=== PATIENT | male | born 1950 | race Two or more races ===

== ENCOUNTER 2019-06-16 17:06 | Inpatient (IN) | payer SELFPAY ==
[~2019-06-16] VITALS: Ht 175.3 cm; Wt 61.5 kg
--- NOTE | 2019-06-16 17:53 | NUR ---
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
--- NOTE | 2019-06-16 18:18 | NUR ---
THIS IS A 69 YO MALE COMING IN FOR CONSTANT COUGH WITH SHORTNESS OF BREATH, STATES "I JUST CAN'T BREATHE ANYMORE. I HAD THE FLU AND A COLD A FEW WEEKS AGO AND IT'S JUST GETTING WORSE". PATIENT SPO2 ON RA 87%, PLACED ON 3L NC, UP TO 99%. PATIENT DENIES ANY MEDICAL OR SURGICAL HX. PATIENT ON ADVERTISER, SINUS TACHYCARDIA AT 110. IV INSERTED. CALL LIGHT IN REACH. NEEDS ADDRESSED AT THIS TIME.
[2019-06-16] MEDS ORDERED: ALBUTEROL/IPRATROPIUM 2.5MG/0.5MG, 3 ML ONE (18:29)
[2019-06-16] MEDS ORDERED: SODIUM CHLORIDE FLUSH 10ML SYR IVF ONE (18:30)
[2019-06-16] MEDS ORDERED: ALBUTEROL/IPRATROPIUM 2.5MG/0.5MG, 3 ML NPPB ONE (18:30)
[2019-06-16 18:40] LABS: BASOPHILS # (AUTO) 0.01 x10^3/uL (0-0.1); BASOPHILS % (AUTO) 0 % (0-1); EOSINOPHILS % (AUTO) 0 % (1-7); LYMPHOCYTES # (AUTO) 0.94 x10^3/uL (1-3.4); LYMPHOCYTES % (AUTO) 16 % (22-44); MD NO; MEAN CORPUSCULAR HEMOGLOBIN 31.3 pg (27.5-34.5); MEAN CORPUSCULAR HGB CONC 33.6 g/dL (33.2-36.2); MEAN CORPUSCULAR VOLUME 93.2 fL (81-97); MEAN PLATELET VOLUME 7.9 fL (7.4-10.4); MONOCYTES % (AUTO) 8 % (2-9); NEUTROPHILS # (AUTO) 4.56 x10^3/uL (1.8-6.8); NEUTROPHILS % (AUTO) 76 % (42-75); PLATELET COUNT 212 x10^3/uL (130-400); RED CELL DISTRIBUTION WIDTH 12.7 % (9.4-14.8)
[2019-06-16 18:52] LABS: ALANINE AMINOTRANSFERASE 17 U/L (12-78); ALBUMIN 3.6 g/dL (3.4-5.0); ANION GAP 5 mmol/L (5-15); CALCIUM 8.5 mg/dL (8.5-10.1); CHLORIDE 101 mmol/L (98-107); CREATININE 0.95 mg/dL (0.7-1.3)
[2019-06-16 18:56] LABS: ALKALINE PHOSPHATASE 75 U/L (45-117); BILIRUBIN,TOTAL 0.5 mg/dL (0.2-1.0); TOTAL PROTEIN 8.2 g/dL (6.4-8.2); TROPONIN I < 0.015 ng/mL (0.000-0.045)
[2019-06-16] MEDS ORDERED: methylPREDNISolone SOD SUCC 125 MG/2 ML ONE (19:14)
--- NOTE | 2019-06-16 19:19 | NUR ---
MEDS ADMIN PER MAR. PT RESTING COMFORTABLY ON GURNEY. NADN. PT STATES HE FEELS BETTER AFTER BREATHING TX.
--- NOTE | 2019-06-16 19:21 | NUR ---
ALL RESULTS ARE BACK AT THIS TIME. CHART UP FOR RECHECK.
[2019-06-16] MEDS ORDERED: methylPREDNISolone SOD SUCC 125 MG/2 ML IVPush ONE (19:30)
--- NOTE | 2019-06-16 19:58 | NUR ---
RECEIVED ADMIT ORDERS
--- NOTE | 2019-06-16 20:59 | NUR ---
PT RESTING COMFORTABLY ON GURNEY PLAYING ON PHONE. NADN. AWAITING ADMIT BED UPSTAIRS.
--- NOTE | 2019-06-16 21:53 | NUR ---
REPORT GIVEN TO KHADIJAH GALLOWAY.
--- NOTE | 2019-06-16 22:08 | NUR ---
HOSPITALIST AT BEDSIDE.
[2019-06-16] MEDS ORDERED: PROMETHAZINE 25 MG/ML, 1ML IM PRN (22:30)
[2019-06-16] MEDS ORDERED: hydrALAzine 20 MG/ML, 1ML IVPush PRN (22:30)
[2019-06-16] MEDS ORDERED: ONDANSETRON 2MG/ML, 2ML IVPush PRN (22:30)
[2019-06-16] MEDS: ENOXAPARIN 40 MG/0.4 ML SQ SCH (23:46)
[2019-06-16] MEDS: CEFTRIAXONE PMX 1GM/50ML 50 ML IV SCH (23:46)
[2019-06-16] MEDS: AZITHROMYCIN 500 MG in SODIUM CHLORIDE 0.9% 250 ML IV SCH (23:46)
[2019-06-17] MEDS ORDERED: ALBUTEROL/IPRATROPIUM 2.5MG/0.5MG, 3 ML NPPB PRN
[2019-06-17 00:29] LABS: RAPID INFLUENZA A Negative (Negative); RAPID INFLUENZA B Negative (Negative)
[2019-06-17 03:04] VITALS: BP 106/67
[2019-06-17] MEDS: ALBUTEROL/IPRATROPIUM 2.5MG/0.5MG, 3 ML NPPB SCH ×4 (06:43→19:31)
[2019-06-17 06:59] VITALS: BP 147/76
[2019-06-17 13:56] VITALS: BP 116/67
[2019-06-17] MEDS: methylPREDNISolone SOD SUCC 125 MG/2 ML IVPush SCH ×2 (18:49→23:36)
[2019-06-17 19:29] VITALS: BP 131/64
[2019-06-17] MEDS: ENOXAPARIN 40 MG/0.4 ML SQ SCH (22:34)
[2019-06-17] MEDS: CEFTRIAXONE PMX 1GM/50ML 50 ML IV SCH (22:34)
[2019-06-17] MEDS ORDERED: ACETAMINOPHEN 325 MG TABLET PO PRN (23:00)
[2019-06-17] MEDS: AZITHROMYCIN 500 MG in SODIUM CHLORIDE 0.9% 250 ML IV SCH (23:29)
[2019-06-18 00:06] VITALS: BP 110/64
[2019-06-18] MEDS: methylPREDNISolone SOD SUCC 125 MG/2 ML IVPush SCH ×3 (05:51→17:16)
[2019-06-18 05:55] LABS: BASOPHILS % (AUTO) 0 % (0-1); EOSINOPHILS # (AUTO) 0.03 x10^3/uL (0-0.4); EOSINOPHILS % (AUTO) 0 % (1-7); LYMPHOCYTES % (AUTO) 8 % (22-44); MD NO; MEAN CORPUSCULAR HEMOGLOBIN 30.7 pg (27.5-34.5); MEAN CORPUSCULAR HGB CONC 32.8 g/dL (33.2-36.2); MEAN CORPUSCULAR VOLUME 93.8 fL (81-97); MEAN PLATELET VOLUME 8.6 fL (7.4-10.4); MONOCYTES # (AUTO) 0.33 x10^3/uL (0.2-0.8); MONOCYTES % (AUTO) 3 % (2-9); NEUTROPHILS # (AUTO) 9.58 x10^3/uL (1.8-6.8); NEUTROPHILS % (AUTO) 89 % (42-75); PLATELET COUNT 212 x10^3/uL (130-400); RED BLOOD COUNT 4.29 x10^6/uL (4.38-5.82); RED CELL DISTRIBUTION WIDTH 12.9 % (9.4-14.8)
[2019-06-18 05:59] LABS: ALBUMIN 2.9 g/dL (3.4-5.0); ANION GAP 8 mmol/L (5-15); CALCIUM 8.3 mg/dL (8.5-10.1); CHLORIDE 106 mmol/L (98-107)
[2019-06-18 06:03] LABS: ALANINE AMINOTRANSFERASE 16 U/L (12-78); ALKALINE PHOSPHATASE 55 U/L (45-117); BILIRUBIN,TOTAL 0.3 mg/dL (0.2-1.0); CREATININE 0.86 mg/dL (0.7-1.3)
[2019-06-18 06:29] LABS: MICROSCOPIC NOT IND
[2019-06-18 06:31] LABS: CULTURE INDICATED? NO
[2019-06-18 07:18] VITALS: BP 118/70
[2019-06-18] MEDS: ALBUTEROL/IPRATROPIUM 2.5MG/0.5MG, 3 ML NPPB SCH ×3 (08:00→19:27)
[2019-06-18 13:31] VITALS: BP 133/69
[2019-06-18 18:49] VITALS: BP 148/81
[2019-06-18] MEDS: CEFTRIAXONE PMX 1GM/50ML 50 ML IV SCH (22:08)
[2019-06-18] MEDS: ENOXAPARIN 40 MG/0.4 ML SQ SCH (22:13)
[2019-06-18] MEDS: AZITHROMYCIN 500 MG in SODIUM CHLORIDE 0.9% 250 ML IV SCH (23:06)
[2019-06-19] MEDS: methylPREDNISolone SOD SUCC 125 MG/2 ML IVPush SCH ×5 (00:20→23:55)
[2019-06-19 01:54] VITALS: BP 113/72
[2019-06-19 05:52] LABS: BASOPHILS # (AUTO) 0.03 x10^3/uL (0-0.1); BASOPHILS % (AUTO) 0 % (0-1); EOSINOPHILS % (AUTO) 0 % (1-7); LYMPHOCYTES # (AUTO) 0.74 x10^3/uL (1-3.4); LYMPHOCYTES % (AUTO) 7 % (22-44); MD NO; MEAN CORPUSCULAR HEMOGLOBIN 30.5 pg (27.5-34.5); MEAN CORPUSCULAR HGB CONC 33.3 g/dL (33.2-36.2); MEAN CORPUSCULAR VOLUME 91.5 fL (81-97); MEAN PLATELET VOLUME 8.2 fL (7.4-10.4); MONOCYTES # (AUTO) 0.57 x10^3/uL (0.2-0.8); MONOCYTES % (AUTO) 5 % (2-9); NEUTROPHILS # (AUTO) 9.62 x10^3/uL (1.8-6.8); NEUTROPHILS % (AUTO) 88 % (42-75); PLATELET COUNT 230 x10^3/uL (130-400); RED BLOOD COUNT 4.28 x10^6/uL (4.38-5.82); RED CELL DISTRIBUTION WIDTH 13.1 % (9.4-14.8)
[2019-06-19 05:59] LABS: ALBUMIN 2.7 g/dL (3.4-5.0); ANION GAP 5 mmol/L (5-15); CALCIUM 7.7 mg/dL (8.5-10.1); CHLORIDE 108 mmol/L (98-107); CREATININE 0.78 mg/dL (0.7-1.3)
[2019-06-19] MEDS: ALBUTEROL/IPRATROPIUM 2.5MG/0.5MG, 3 ML NPPB SCH ×4 (06:00→18:49)
[2019-06-19 07:25] VITALS: BP 129/73
[2019-06-19 12:38] VITALS: BP 136/74
[2019-06-19 19:36] VITALS: BP 138/66
[2019-06-19] MEDS: CEFTRIAXONE PMX 1GM/50ML 50 ML IV SCH (22:07)
[2019-06-19] MEDS: ENOXAPARIN 40 MG/0.4 ML SQ SCH (22:07)
[2019-06-19] MEDS: AZITHROMYCIN 500 MG in SODIUM CHLORIDE 0.9% 250 ML IV SCH (22:53)
[2019-06-20 01:43] VITALS: BP 138/80
[2019-06-20] MEDS: methylPREDNISolone SOD SUCC 125 MG/2 ML IVPush SCH ×4 (05:44→23:05)
[2019-06-20 07:22] VITALS: BP 143/78
[2019-06-20] MEDS: ALBUTEROL/IPRATROPIUM 2.5MG/0.5MG, 3 ML NPPB SCH ×4 (07:30→18:49)
[2019-06-20 14:08] VITALS: BP 150/82
[2019-06-20] MEDS: GUAIFENESIN ER 600 MG TABLET PO SCH ×2 (14:41→21:11)
[2019-06-20 19:04] VITALS: BP 145/84
[2019-06-20] MEDS: CEFTRIAXONE PMX 1GM/50ML 50 ML IV SCH (22:12)
[2019-06-20] MEDS: AZITHROMYCIN 500 MG in SODIUM CHLORIDE 0.9% 250 ML IV SCH (23:04)
[2019-06-20] MEDS: ENOXAPARIN 40 MG/0.4 ML SQ SCH (23:05)
[2019-06-21 01:54] VITALS: BP 145/80
[2019-06-21] MEDS: methylPREDNISolone SOD SUCC 125 MG/2 ML IVPush SCH (05:23)
[2019-06-21] MEDS: ALBUTEROL/IPRATROPIUM 2.5MG/0.5MG, 3 ML NPPB SCH ×4 (07:34→21:00)
[2019-06-21 08:01] VITALS: BP 142/80
[2019-06-21] MEDS: GUAIFENESIN ER 600 MG TABLET PO SCH ×2 (08:03→21:01)
[2019-06-21] MEDS: SODIUM CHLORIDE 0.9% 1,000 ML IV SCH (08:39)
[2019-06-21 15:59] VITALS: BP 128/64
[2019-06-21 19:39] VITALS: BP 138/67
[2019-06-21] MEDS: ENOXAPARIN 40 MG/0.4 ML SQ SCH (22:55)
[2019-06-22] MEDS: SODIUM CHLORIDE 0.9% 1,000 ML IV SCH ×2 (01:47→17:46)
[2019-06-22 01:54] VITALS: BP 112/66
[2019-06-22] MEDS ORDERED: FLU VACC QS2019-20 36MOS UP/PF 0.5 ML IM-VACC ONE (06:00)
[2019-06-22] MEDS: ALBUTEROL/IPRATROPIUM 2.5MG/0.5MG, 3 ML NPPB SCH ×4 (06:55→19:06)
[2019-06-22 07:25] VITALS: BP 131/76
[2019-06-22 08:11] LABS: ANION GAP 4 mmol/L (5-15); CALCIUM 7.3 mg/dL (8.5-10.1); CHLORIDE 107 mmol/L (98-107); CREATININE 0.76 mg/dL (0.7-1.3)
[2019-06-22] MEDS: GUAIFENESIN ER 600 MG TABLET PO SCH ×2 (09:38→20:18)
[2019-06-22 13:14] VITALS: BP 135/73
[2019-06-22 19:42] VITALS: BP 142/79
[2019-06-22] MEDS: ENOXAPARIN 40 MG/0.4 ML SQ SCH (22:38)
[2019-06-23 02:43] VITALS: BP 157/90
[2019-06-23] MEDS: ALBUTEROL/IPRATROPIUM 2.5MG/0.5MG, 3 ML NPPB SCH ×2 (07:30→12:26)
[2019-06-23 07:45] VITALS: BP 152/83
[2019-06-23] MEDS: GUAIFENESIN ER 600 MG TABLET PO SCH (08:47)
[2019-06-23] MEDS: CARVEDILOL 3.125 MG TABLET PO SCH ×2 (08:47→17:29)
[2019-06-23] MEDS: SODIUM CHLORIDE 0.9% 1,000 ML IV SCH (10:54)
[2019-06-23] MEDS ORDERED: CARV3.1212 PO (12:26)
[2019-06-23] MEDS ORDERED: GUAI600T31 PO (12:26)
[2019-06-23] MEDS ORDERED: IPRA4AER PO ×2 (12:30)
[2019-06-23] MEDS ORDERED: ALBU90AE PO (16:58)
== END 2019-06-23 18:06 | disposition home or self-care (01) | DRG 189 ==
LOC: ED 19:05 → EDIP 19:56 → 3N 22:41
PROVIDERS: ADMIT Family Medicine; ATTEND Hospitalist
DX: J96.01 Acute respiratory failure with hypoxia (principal); E87.1 Hypo-osmolality and hyponatremia; J44.1 Chronic obstructive pulmonary disease with (acute) exacerbation; F17.200 Nicotine dependence, unspecified, uncomplicated; Z86.11 Personal history of tuberculosis
CPT/HCPCS: 36415; 87400; 99285; J7620; 71045; 71275; 80048; 80053; 81003; 82040; 83735; 83880; 84100; 84484; 85025; 90686; 93005; 94640; G0378; J0456; J0696; J1650; J2930; J7030; J7050; J7512